=== PATIENT | male | born 1965 | race Caucasian/White ===

== ENCOUNTER 2019-04-03 14:31 | Observation (INO) ==
[2019-04-03] MEDS ORDERED: NITROGLYCERIN 2% OINTMENT 30GM TUBE EXT ONE (15:08)
--- NOTE | 2019-04-03 15:37 | XRay Report ---
XR chest 1V portable CLINICAL HISTORY: chest pain dyspnea COMPARISON STUDY: No previous studies for comparison. FINDINGS: The bones soft tissues and hemidiaphragms are normal. The cardiomediastinal silhouette is n ormal. The lungs are clear. The pulmonary vasculature is normal. IMPRESSION: Negative chest. The above report was generated using voice recognition software. It may contain grammatical, syntax or spelling errors. Electronically signed by: Joel Bonilla M.D. 04/03/2019 3:36 PM
[2019-04-03 16:10] LABS: Basophils # (auto) 0.03 K/uL (0-0.2); Basophils % (auto) 0.4 %; Eosinophils # (auto) 0.32 K/uL (0-0.5); Eosinophils % (auto) 3.8 %; Hematocrit (blood only) 39.9 % (42-52); Hemoglobin 13.3 g/dL (14.0-18.0); Immature Granulocytes # (auto) 0.04 K/uL (0.00-0.02); Immature Granulocytes % (auto) 0.5 %; Lymphocytes # (auto) 1.99 K/uL (1.2-3.4); Lymphocytes % (auto) 23.8 %; Mean Corpuscular Hemoglobin 27.4 pg (25-34); Mean Corpuscular Hgb Conc 33.3 g/dL (32-36); Mean Corpuscular Volume 82.1 fL (80-100); Mean Platelet Volume 9.6 fL (7.4-10.4); Monocytes # (auto) 0.68 K/uL (0.11-0.59); Monocytes % (auto) 8.1 %; Neutrophils % (auto) 63.4 %; Platelet Count 241 K/uL (130-400); RDW Standard Deviation 48.3 fL (36.4-46.3); Red Blood Count 4.86 M/uL (4.7-6.1); White Blood Count 8.36 K/uL (4.8-10.8)
[2019-04-03] MEDS: fentaNYL citrate 100 MCG/2 ML VIAL IV PRN ×3 (16:15→16:56)
[2019-04-03 16:25] LABS: Alanine Aminotransferase 45 U/L (12-78); Albumin Level 3.3 gm/dl (3.4-5.0); Aspartate Aminotransferase 31 U/L (15-37); Blood Urea Nitrogen 17 mg/dl (7-18); Calcium 8.7 mg/dl (8.5-10.1); Carbon Dioxide 28 mmol/L (21-32); Chloride 105 mmol/L (98-107); Est GFR (Non-African American) 77.6; Glucose 131 mg/dl (70-99); Potassium 4.2 mmol/L (3.5-5.1); Sodium 140 mmol/L (136-145)
[2019-04-03 16:35] LABS: Albumin Globulin Ratio 0.9 (0.9-2); Alkaline Phosphatase 83 U/L (45-117); Bilirubin,Total 0.4 mg/dl (0.2-1); Globulin 3.6 gm/dl (2.5-4.0); NT Pro B Type Natriuretic Pept 95 pg/ml (0-900); Total Protein 6.9 gm/dl (6.4-8.2); Troponin I < 0.015 ng/ml (0-0.045)
[2019-04-03] MEDS ORDERED: MoRPHine SULFATE 4 MG/ML 1 ML CARP\\VIAL IV STA (17:16)
[2019-04-03] MEDS ORDERED: ONDANSETRON INJ 2 MG/ML 2 ML VIAL IV STA (17:16)
[2019-04-03] MEDS ORDERED: OPTIRAY 320 125ml IV PRN (17:51)
--- NOTE | 2019-04-03 17:57 | History & Physical Report ---
Date of Service April 03, 2019 Assessment & Plan (1) Pneumonia: (2) Chest pain: Pt is 53 y/o M with PMH NSTEMI, factor V Leiden, lower extremity and upper extremity DVT, recurrent PE's presented with complaint of anterior chest pain, greater over right chest for 2 hours. Denies diaphoresis, N/V, dizziness, SOB. Patient with history of recurrent PEs, previously failed on Coumadin, Xarelto, Eliquis. Recently hospitalized in [place] 3- 4 weeks ago for PE and was started on Pradaxa twice daily. Denies missed doses. In ER vitals stable, 97% on RA. No leukocytosis. EKG sinus rhythm without acute ST elevation CXR: no acute changes CTA CHEST: No evidence for pulmonary embolus. Focal infiltrate right base. CP DDX: PE, Pneumonia, ACS, pleurisy PE Ruled Out Infiltrate consistent with pneumonia -In ER nitropaste, fentanyl with minimal relief in CP -Rocephin, Zithromax -Repeat EKG in am -Will trend troponin -Echo -Lipid panel in am -Continue aspirin, metoprolol -Morphine prn pain -Continue Pradaxa -Consider cardiology consult if troponin trending up -CBC, BMP in am (3) CAD (coronary artery disease): Reports hx NSTEMI. Denies h/o cardiac stent -Reports was taken off statin, but was recently prescribed new statin however has not started taking yet -Continue aspirin, metoprolol -ACS R/O as above (4) Recurrent pulmonary embolism: History of factor V Leiden. History recurrent PE's. Previously failed on Coumadin, Xarelto, Eliquis. Recently hospitalized in [place] 3- 4 weeks ago for PE and was started on Pradaxa twice daily. Denies missed doses. CTA without acute PE today -Continue Pradaxa DVT Prophylaxis -On Pradaxa Follows with PCP (unsure name) in [place] through [facility] for routine care Pt was seen and care coordinated with Dr Mojica. See addendum History of Present Illness Chief Complaint: CP Primary Care Provider: Pt unsure of Dr Name - [facility] Pt is 53 y/o M with PMH NSTEMI, factor V Leiden, lower extremity and upper extremity DVT, recurrent PE's presented to ER with complaint of chest pain for 2 hours. Patient with history of recurrent PEs failed on Coumadin, XarelShivani agee. Reports was recently hospitalized in [place] 3 to 4 weeks ago for PE and was started on Pradaxa twice daily. Reports has neonatal doctor in [place]. Today with onset anterior right and left chest pain. Reports worse to right side of chest and denies extremity radiation to this provider. Some increased CP with inspiration. Denies SOB. Reports this feels more like his prior PE's than [place]. Reports some intermittent bilateral lower extremity pain, denies any noted increased edema or erythema. Denies associated nausea, vomiting, diaphoresis, dizziness or syncope. Tried taking one nitroglycerin without relief however caused headache. 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 Drove 7 to 8 hours today and reports stopping twice to walk around. Reports taking his Pradaxa BID and denies missed doses. Patient denies any history of IVC filter. Reports history of filter to neck. Denies any hx cardiac stent. Denies fever/chills, diaphoresis, N/V/D/C, dizziness, syncope, vision changes, neck pain, orthopnea, palpitations, cough, sore throat, choking, otalgia, rhinorrhea, abdominal pain, paresthesias, weak ness, extremity weakness, rashes, urinary symptoms. In ER Nitropaste placed without any improvement of chest pain. Patient was given fentanyl taking pain from greater than 10 out of 10 on pain scale to 9/10 on pain scale. Allergies Allergy/AdvReac Type Severity Reaction Status Date / Time No Known Allergies Allergy Unverified 04/03/19 15:35 Home Medications Home Medications Medication Instructions Recorded Confirmed Type aspirin 81 mg PO DAILY 04/03/19 04/03/19 History dabigatran etexilate [Pradaxa] 150 mg PO BID 04/03/19 04/03/19 History metoprolol tartrate 25 mg PO BID 04/03/19 04/03/19 History nitroglycerin 0.4 mg SUBLINGUAL UD PRN 04/03/19 04/03/19 History Past Med/Surg History Medical History CAD (coronary artery disease) (Chronic) DVT (deep venous thrombosis) (Chronic) Recurrent pulmonary embolism (Chronic) DVT (deep venous thrombosis) Hypertension Pulmonary embolism Surgical History History of vascular surgery (Chronic) H/O thrombectomy, right arm History of cardiac catheterization (Chronic) History of inguinal hernia repair (Chronic) History of umbilical hernia repair (Chronic) History of cholecystectomy (Chronic) History of appendectomy (Chronic) Hx of tonsillectomy (Chronic) Family History Sister Factor V Leiden Diabetes Father Coronary heart disease Mother Cancer brain cancer Brother Cerebral aneurysm Other Heart disease Social History Feels Safe at Home: Yes Smoking Status: Never smoker Hx Alcohol Use: Yes Alcohol Intake Frequency: Holidays/Special Occasions Hx Substance Use: No Review of Systems Review of Systems: All systems reviewed & are unremarkable except as noted in HPI & below Physical Exam Physical Exam: General: no acute distress, WDWN Head: normocephalic, atraumatic Eyes: PERRL, EOM's intact, conjunctiva non-injected, anicteric ENT: normal inspection external ears, nose, mucous membranes moist Neck: supple, trachea midline Lungs: clear, no respiratory distress, no wheezing/rhonchi/rales CV: RRR, no murmur, no pretibial edema Chest: non-tender to palpation Abd: normal BS, soft, non-tender Ext: no cyanosis, no erythema or warmth, no calf tenderness Neuro: A&O x 3, no focal deficits noted, normal affect Skin: warm, dry Results & Data Vital Signs (Past 12 Hours) Vital Signs Temp Pulse Pulse Resp BP BP Pulse Ox 04/03/19 16:37 67 20 153/83 H 97 04/03/19 16:24 62 18 154/74 H 96 04/03/19 15:21 71 18 149/88 H 98 04/03/19 14:33 36.7 C 84 20 189/96 H 97 Laboratory Results Short CBC 04/03/19 Range/Units 15:55 WBC 8.36 (4.8-10.8) K/uL Hgb 13.3 L (14.0-18.0) g/dL Hct 39.9 L (42-52) % Plt Count 241 (130-400) K/uL BMP 04/03/19 15:55 Sodium 140 Potassium 4.2 Chloride 105 Carbon Dioxide 28 BUN 17 Creatinine 1.09 Glucose 131 H Calcium 8.7 Cardiac Enzymes 04/03/19 Range/Units 15:55 Troponin I < 0.015 (0-0.045) ng/ml Liver Function 04/03/19 Range/Units 15:55 Total Bilirubin 0.4 (0.2-1) mg/dl AST 31 (15-37) U/L ALT 45 (12-78) U/L Alkaline Phosphatase 83 (45-117) U/L Albumin 3.3 L (3.4-5.0) gm/dl Diagnostic Findings CXR: IMPRESSION: Negative chest. CTA CHEST: IMPRESSION: 1. No evidence for pulmonary embolus. 2. Focal infiltrate right base. Code Status & VTE Plan VTE Prophylaxis Plan VTE Prophylaxis will be ordered: Yes Supervising Physician Co-Signing Physician Notes I saw this patient with the physician activities assistant, I participated in the history, physical, review of systems, and physical exam. I reviewed the medications with the patient and the physician activities assistant and helped reconcile the medications. I helped take a detailed family and social history as well. I formulated the assessment and plan personally with the physician activities assistant and went over it with the patient. ROS-No Headache, No Visual Changes, No Nausea, No Vomiting, No Fever, No Chills, No Neck Pain or Stiffness, Pos Chest Pain, No Palpitations, No SOB, No TAMEZ, No Cough, No Sputum, No Wheezing, No Abdominal Pain, No Diarrhea, No Hematemesis, No Hemoptysis, No Unexpected Weight Loss, No Flank pain, No Melena, No Hematochezia, No Frequency, No Urgency, No Burning, No Hematuria, No Rashes, No Diaphoresis. Appetite is Normal Physical Exam Gen-AAO x 3, NAD, Afebrile, obese Head-NCAT, EOMI, PERRLA, Anicteric Sclera, No Posterior Pharyngeal Erythema Neck-Supple, No JVD, No Thyromegaly, No Masses, No LAD, No Bruits Lungs-Clear to Auscultation Bilaterally, No Rales, No Rhonchi, No Wheezing, No Crepitus Chest-No S4, +S1, +S2, No S3, No Murmurs, No Rubs, No Gallops, No Ectopy Abdomen-Soft, Bowel Sounds Present, Non Tender, Non Distended, No Hepatomegaly, No Splenomegaly, No Palpable Masses, No Rebound, No Rigidity, No Guarding Musculoskeletal-Full Range of Motion Bilaterally, No CVAT Extremities-No Cyanosis, No Clubbing, No Edema Nuero-Cranial Nerves II-XII grossly intact, Motor WNL, DTRs WNL, Strength WNL, Non Focal Psych-Normal Mood (1) Chest pain Chest pain type: unspecified Qualified Code(s): R07.9 - Chest pain, unspecified
[2019-04-03] MEDS ORDERED: HEPARIN SODIUM/DEXTROSE 25,000 UNITS/500 ML BAG IV SCH (18:00)
--- NOTE | 2019-04-03 18:14 | CT Scan Report ---
CT angio chest PE protocol CT DOSE: 935.79 mGy.cm HISTORY: Dyspnea PE TECHNIQUE: Multiaxial CT images of the chest were performed following the intravenous administration of contrast to evaluate the pulmonary arteries. Maximal intensity projection images were also obtaine d. A dose lowering technique was utilized adhering to the principles of ALARA. COMPARISON STUDY: None. FINDINGS: There is a normal caliber thoracic aorta with no evidence for dissection. There is no evide nce for pulmonary embolus. No pleural effusions. No pneumothorax. The liver and spleen are unremarkab le. No mediastinal or hilar lymphadenopathy. The central airways are patent. The lungs are demonstrat e. Focal right basilar parenchymal infiltrate. Left base shows slight interstitial prominence. Mid-up per lungs are clear IMPRESSION: 1. No evidence for pulmonary embolus. 2. Focal infiltrate right base. The above report was generated using voice recognition software. It may contain grammatical, syntax or spelling errors. Electronically signed by: Joel Bonilla M.D. 04/03/2019 6:12 PM
[2019-04-03 18:16] LABS: Partial Thromboplastin Ratio 0.9; Partial Thromboplastin Time 23.1 Seconds (21.0-31.0); Prothrombin Time 9.8 Seconds (9.0-12.0)
[2019-04-03] MEDS ORDERED: ONDANSETRON INJ 2 MG/ML 2 ML VIAL IV PRN (18:43)
[2019-04-03] MEDS ORDERED: ACETAMINOPHEN 325 MG TAB PO PRN (18:43)
[2019-04-03] MEDS ORDERED: MoRPHine SULFATE 4 MG/ML 1 ML CARP\\VIAL IV PRN (18:43)
[2019-04-03] MEDS ORDERED: OXYCODONE HCL IR 5 MG TAB (IMMEDIATE RELEASE) PO PRN (18:48)
[2019-04-03] MEDS ORDERED: cefTRIAXone SODIUM 2,000 MG in DEXTROSE 5% 50 ML IV SCH (19:00)
[2019-04-03] MEDS ORDERED: AZITHROMYCIN 500 MG in DEXTROSE 5% 250 ML IV SCH (19:00)
[2019-04-03] MEDS ORDERED: DABIGATRAN ETEXILATE 75 MG CAP PO SCH (21:00)
[2019-04-03] MEDS ORDERED: METOPROLOL TARTRATE 25 MG TAB PO SCH (21:00)
--- NOTE | 2019-04-03 23:48 | Emergency Department Note ---
Entered by Katina Alvarado acting as a scribe for Zuleima Arnold DO History of Present Illness General Chief complaint: Chest Pain Stated complaint: CHEST PAIN,NAUSEA Time Seen by Provider: 04/03/19 14:54 Source: patient History of Present Illness Provider complaint: Chest Pain Onset (ago): hour(s) 2 Location: chest Radiation: back and extremity (Shoulder) Pain Consistency: + constant Maximum Pain Intensity: 10 Quality: + stabbing and + other (Pressure and tightness) Associated symptoms: + nausea/vomiting (Positive nausea. Negative vomiting. ) and + shortness of breath The patient is a 53 year old male who presents to the Emergency Room with complaints of constant pressure and stabbing chest tightness that began about 2 hours ago. The patient states the pain radiates to his back and shoulder. The patient reports experiencing nausea and shortness of breath but denies any vomiting. Patient has been waxing and waning since. No current shortness of breath or nausea. Patient did try a nitro pill when all this started, states does not help the chest pain but it did give him a headache. No other treatment prior to arrival. Patient states he was helping to move someone when this all started. The patient mentioned that he was discharged from the hospital about a month ago for blood clots in both lungs. The patient notes that he has a history of blood clots on multiple different blood thinner medications. Patient does have an IVC filter. There is a family history of factor V Leiden. Patient also concerned about his heart, stating he has had a prior NSTEMI. Patient does not have any indwelling stents. Home Medications Home Medications Medication Instructions Recorded Confirmed Type aspirin 81 mg PO DAILY 04/03/19 04/03/19 History dabigatran etexilate [Pradaxa] 150 mg PO BID 04/03/19 04/03/19 History metoprolol tartrate 25 mg PO BID 04/03/19 04/03/19 History nitroglycerin 0.4 mg SUBLINGUAL UD PRN 04/03/19 04/03/19 History Allergies Allergy/AdvReac Type Severity Reaction Status Date / Time No Known Allergies Allergy Unverified 04/03/19 15:35 Past Med/Surg History Medical History CAD (coronary artery disease) (Chronic) DVT (deep venous thrombosis) (Chronic) Recurrent pulmonary embolism (Chronic) DVT (deep venous thrombosis) Hypertension Pulmonary embolism Surgical History History of vascular surgery (Chronic) H/O thrombectomy, right arm History of cardiac catheterization (Chronic) History of inguinal hernia repair (Chronic) History of umbilical hernia repair (Chronic) History of cholecystectomy (Chronic) History of appendectomy (Chronic) Hx of tonsillectomy (Chronic) Family History Sister Factor V Leiden Diabetes Father Coronary heart disease Mother Cancer brain cancer Brother Cerebral aneurysm Other Heart disease Social History Preferred Language: Palauan Communication Ability: Effective Documentation Specialist Required: No Beliefs That Will Affect Care: None Current Living Situation: Alone Other Information That Helps Us Care for You: No Feels Safe at Home: Yes Safety Concerns: Feels Safe At This Time Smoking Status: Never smoker Hx Alcohol Use: Yes Alcohol Intake Frequency: Holidays/Special Occasions Hx Substance Use: No Review of Systems See HPI for pertinent positives & negatives. and A total of 10 systems reviewed and were otherwise negative Physical Exam Vital Signs Vital Signs - 24 hr 04/03/19 14:33 04/03/19 15:21 04/03/19 16:24 Temperature 36.7 C Temperature Source Oral Sepsis Recent Fever Within 48 Hours No Sepsis New/Unexplained Change in Mental Status No Sepsis Action Taken by Nursing No Action Required Pulse Rate 84 Pulse Rate [Right Finger] 71 62 Pulse Rhythm [Right Finger] Regular Respiratory Rate 20 18 18 Respiratory Effort / Characteristics Non-Labored Non-Labored Spontaneous Respiratory Depth Normal Normal Respiratory Pattern Blood Pressure 189/96 H Blood Pressure [Right Arm] 149/88 H 154/74 H Blood Pressure Mean 127 Blood Pressure Mean [Right Arm] 108 100 Blood Pressure Position [Right Arm] Lying Lying Pulse Oximetry 97 98 96 Oxygen Delivery Method Room Air Room Air 04/03/19 16:37 Temperature Temperature Source Sepsis Recent Fever Within 48 Hours Sepsis New/Unexplained Change in Mental Status Sepsis Action Taken by Nursing Pulse Rate Pulse Rate [Right Finger] 67 Pulse Rhythm [Right Finger] Regular Respiratory Rate 20 Respiratory Effort / Characteristics Non-Labored Spontaneous Respiratory Depth Normal Respiratory Pattern Regular Blood Pressure Blood Pressure [Right Arm] 153/83 H Blood Pressure Mean Blood Pressure Mean [Right Arm] 106 Blood Pressure Position [Right Arm] Lying Pulse Oximetry 97 Oxygen Delivery Method Room Air GENERAL: alert, uncomfortable-appearing, well nourished, no distress, non-toxic EYE EXAM: normal conjunctiva, PERRL and EOM's grossly intact OROPHARYNX: no exudate, no erythema, lips, buccal mucosa, and tongue normal and mucous membranes are moist NECK: supple, no nuchal rigidity, no adenopathy, non-tender LUNGS: Clear to auscultation. Normal chest wall mechanics. No wheezes, rhonchi, or rales. HEART: no murmurs, S1 normal and S2 normal. No reproducible chest wall tenderness. ABDOMEN: abdomen soft, non-tender, normo-active bowel sounds, no masses, no rebound or guarding. BACK: Back is symmetrical on inspection and there is no deformity, no midline tenderness, no CVA tenderness. SKIN: no rashes and no bruising UPPER EXTREMITIES: upper extremities are grossly normal. FROM, nml pulses b/l. LOWER EXTREMITIES: No pitting edema. FROM, nml pulses b/l. NEURO EXAM: Normal sensorium, cranial nerves II-XII grossly intact, normal speech, no gross weakness of arms, no gross weakness of legs. Course 1458: Past medical records reviewed. The patient was evaluated in room B11B. A complete history and physical exam was performed. 1644: I reevaluated the patient and discussed test results. The patient states that he is still in pain. Additional pain medication added. 1651: I spoke with Deloris Retana about the patient's case and she said Dr. Mojica will accept the patient for further evaluation. They will evaluate the patient prior to deciding if they want additional anticoagulation started or CT imaging versus echo performed. Administered Medications Acetaminophen (Tylenol) 650 mg PO Q4H PRN PRN Reason: Pain or Fever Stop: 05/03/19 18:42 Last Admin: 04/03/19 19:51 Dose: 650 mg Documented by: [id number] Dabigatran (Pradaxa) 150 mg PO BID SKY Stop: 05/03/19 20:59 Last Admin: 04/03/19 19:53 Dose: 150 mg Documented by: [id number] Ceftriaxone Sodium 2,000 mg/ (Dextrose) 70 mls @ 100 mls/hr IV Q24H SKY; Protocol Stop: 04/10/19 18:59 Last Infusion: 04/03/19 20:38 Dose: 0 mls/hr Documented by: [id number] Admin: 04/03/19 19:56 Dose: 100 mls/hr Documented by: [id number] Azithromycin 500 mg/ Dextrose 255 mls @ 125 mls/hr IV Q24H SKY; Protocol Stop: 04/10/19 18:59 Last Infusion: 04/03/19 23:05 Dose: 0 mls/hr Documented by: [id number] Admin: 04/03/19 21:02 Dose: 125 mls/hr Documented by: [id number] Metoprolol Tartrate (Lopressor) 25 mg PO BID SKY Stop: 05/03/19 20:59 Last Admin: 04/03/19 19:53 Dose: 25 mg Documented by: [id number] Morphine Sulfate (Morphine Sulfate) 3 mg IV Q3H PRN PRN Reason: Severe Pain Stop: 04/17/19 18:42 Last Admin: 04/03/19 21:22 Dose: 3 mg Documented by: [id number] Oxycodone HCl (Roxicodone Immediate Rel) 5 mg PO Q6H PRN PRN Reason: Moderate Pain Stop: 04/17/19 18:47 Last Admin: 04/03/19 19:51 Dose: 5 mg Documented by: [id number] Discontinued Medications Fentanyl Citrate (Fentanyl Citrate) 100 mcg IV Q15M PRN PRN Reason: Pain Stop: 04/17/19 15:07 Last Admin: 04/03/19 16:56 Dose: 100 mcg Documented by: [id number] Admin: 04/03/19 16:35 Dose: 100 mcg Documented by: [id number] Admin: 04/03/19 16:15 Dose: 100 mcg Documented by: [id number] Heparin Sodium/Dextrose () 1 ea IV NOW STA; Protocol Stop: 04/03/19 17:51 Last Admin: 04/03/19 18:44 Dose: Not Given Documented by: [id number] Heparin Sodium/Dextrose (Heparin Sodium/Dextrose) 25,000 units in 500 mls @ 0.02 mls/hr IV .Q24H SKY; Protocol Stop: 05/03/19 17:59 Last Admin: 04/03/19 18:44 Dose: Not Given Documented by: [id number] Ioversol (Optiray 320 125ml) 115 ml IV ONCE PRN PRN Reason: Interaction Checking Stop: 04/07/19 17:50 Last Admin: 04/03/19 17:51 Dose: 115 ml Documented by: [id number] Morphine Sulfate (Morphine Sulfate) 4 mg IV NOW STA Stop: 04/03/19 17:17 Last Admin: 04/03/19 17:31 Dose: 4 mg Documented by: [id number] Nitroglycerin (Nitro-Bid 2%) 1 inch EXT NOW ONE Stop: 04/03/19 15:09 Last Admin: 04/03/19 15:20 Dose: 1 inch Documented by: [id number] Ondansetron HCl (Zofran) 4 mg IV NOW STA Stop: 04/03/19 17:17 Last Admin: 04/03/19 17:31 Dose: 4 mg Documented by: [id number] Medical Decision Making Differential Diagnosis Differential diagnosis: Etiologies such as shingles, musculoskeletal pain, pericarditis, myocarditis, cardiac ischemia, pericardial tamponade, pneumonia, pneumothorax, pleural effusion, hemothorax, pleurisy, aortic pathology, pulmonary embolism, intra- abdominal process, as well as others were considered. Medical Records Attestation: I reviewed the patient's medical records. Home Medications Current Medication List: was personally reviewed by me Laboratory Data Attestation: I reviewed the patient's lab results. Result diagrams: 04/03/19 15:55 04/03/19 15:55 Lab Results 04/03/19 04/03/19 04/03/19 Range/Units 15:00 15:55 15:55 WBC 8.36 (4.8-10.8) K/uL RBC 4.86 (4.7-6.1) M/uL Hgb 13.3 L (14.0-18.0) g/dL Hct 39.9 L (42-52) % MCV 82.1 (80-100) fL MCH 27.4 (25-34) pg MCHC 33.3 (32-36) g/dL RDW Std Deviation 48.3 H (36.4-46.3) fL RDW Coeff of Madhavi 16.0 H (11.5-14.5) % Plt Count 241 (130-400) K/uL MPV 9.6 (7.4-10.4) fL Immature Gran % (Auto) 0.5 % Neut % (Auto) 63.4 % Lymph % (Auto) 23.8 % Perkins % (Auto) 8.1 % Eos % (Auto) 3.8 % Baso % (Auto) 0.4 % Immature Gran # (Auto) 0.04 H (0.00-0.02) K/uL Neut # (Auto) 5.30 (1.4-6.5) K/uL Lymph # (Auto) 1.99 (1.2-3.4) K/uL Perkins # (Auto) 0.68 H (0.11-0.59) K/uL Eos # (Auto) 0.32 (0-0.5) K/uL Baso # (Auto) 0.03 (0-0.2) K/uL PT 9.8 (9.0-12.0) Seconds INR 1.0 (0.9-1.1) APTT 23.1 (21.0-31.0) Seconds PTT Ratio 0.9 Sodium 140 (136-145) mmol/L Potassium 4.2 (3.5-5.1) mmol/L Chloride 105 (98-107) mmol/L Carbon Dioxide 28 (21-32) mmol/L Anion Gap 7.0 (3-11) BUN 17 (7-18) mg/dl Creatinine 1.09 (0.6-1.4) mg/dl Est Cr Clr Drug Dosing 125.0 ml/min Est GFR ( Amer) 90.0 Est GFR (Non-Af Amer) 77.6 BUN/Creatinine Ratio 16.0 (10-20) Glucose 131 H (70-99) mg/dl Calcium 8.7 (8.5-10.1) mg/dl Magnesium 2.0 (1.8-2.4) mg/dl Total Bilirubin 0.4 (0.2-1) mg/dl AST 31 (15-37) U/L ALT 45 (12-78) U/L Alkaline Phosphatase 83 (45-117) U/L Troponin I < 0.015 (0-0.045) ng/ml NT-Pro-B Natriuret Pep 95 (0-900) pg/ml Total Protein 6.9 (6.4-8.2) gm/dl Albumin 3.3 L (3.4-5.0) gm/dl Globulin 3.6 (2.5-4.0) gm/dl Albumin/Globulin Ratio 0.9 (0.9-2) TSH 2.150 (0.300-4.500) uIu/ml Imaging Data Radiologist's Impression: Radiology results as stated below per my review and the radiologist's interpretation: XR KUB/Abdomen 1 view CLINICAL HISTORY: abd pain, constipation COMPARISON STUDY: No previous studies for comparison. FINDINGS: The soft tissues, psoas shadows, renal outlines and intestinal gas pattern appear normal. There is no evidence for bowel obstruction. No abnormal abdominal calcifications are seen. Mild rectal fecal impaction IMPRESSION: Mild rectal fecal impaction. Otherwise negative study The above report was generated using voice recognition software. It may contain grammatical, syntax or spelling errors. Electronically signed by: Joel Bonilla M.D. 04/03/2019 3:31 PM ECG Data Attestation: I personally reviewed and interpreted this ECG as follows: Indication: chest pain Rate (beats per minute): 78 Rhythm: normal sinus Findings: + other (Normal intervals and axis); no PAC, no PVC and no acute ischemic change Blood Pressure Blood Pressure Findings: Elevated blood pressure Blood Pressure Disposition: further management by hospitalist ANA Narrative Patient with known history of coronary artery disease and prior NSTEMI pre senting today with sudden onset of chest pain. Patient is already anticoagulated due to known bilateral PEs. Patient had no relief of his symptoms following nitro. Labs drawn and sent, and initial blood results are reassuring. Chest x-ray unremarkable. Nitroglycerin paste added in addition to IV narcotics to help with pain control. Patient's vital signs were stable throughout. Patient was made aware of all results and was in agreement with plan for additional inpatient evaluation and monitoring. Discussed with patient possible cardiac etiology, versus also the additional concern of his known PEs and prior failure of anticoagulation. Upon my discussion with the hospitalist team, I offered to CT the patient versus to initiate heparin and order a stat echo. They will see and evaluate the patient prior to making this decision. Patient had a negative troponin and no acute EKG changes at this time. I discussed with the patient possible additional testing to be performed and he ve rbalized understanding. Patient remained hemodynamically stable in the emergency room. No other symptoms to suggest evolving infectious etiology. I do not suspect acute GI pathology at this time. I do not suspect dissection, tamponade, effusion, pericarditis/myocarditis. Impression & Plan Chest pain, Recurrent pulmonary embolism Discharge Plan Visit Data *Final* Discharge Date/Time: 04/03/19 18:27 Chief Complaint: Chest Pain Stated Complaint: CHEST PAIN,NAUSEA ED Provider: Zuleima Arnold Discharge Problem: Chest pain, Recurrent pulmonary embolism Patient Disposition: Admitted As Inpatient Discharge Instructions Interventions: ED Discharge Assessment Last Done: 04/03/19 18:27 The scribe's documentation has been prepared under my direction and personally reviewed by me in its entirety. I confirm that the note above accurately reflects all work, treatment, procedures, and medical decision making performed by me.
[2019-04-04 03:09] VITALS: TEMP 98.2
[2019-04-04 03:49] LABS: BUN Creatinine Ratio 15.9 (10-20); Blood Urea Nitrogen 18 mg/dl (7-18); Calcium 8.7 mg/dl (8.5-10.1); Carbon Dioxide 25 mmol/L (21-32); Chloride 107 mmol/L (98-107); Cholesterol 148 mg/dl (0-200); Creatinine Clr Calc Pharmacy 122.6 ml/min; Est GFR (Non-African American) 75.9; Glucose 90 mg/dl (70-99); Potassium 4.4 mmol/L (3.5-5.1); Sodium 139 mmol/L (136-145); Triglycerides 131 mg/dl (0-150); VLDL Cholesterol 26 mg/dl
[2019-04-04 04:04] LABS: Chol HDL Ratio 4; HDL Cholesterol 34 mg/dl; LDL Cholesterol Calculated 88 mg/dl; Troponin I < 0.015 ng/ml (0-0.045)
--- NOTE | 2019-04-04 06:08 | Hospitalist Progress Note ---
Date of Service April 04, 2019 Subjective Made aware by RN of patient request to leave hospital to deliver a scheduled shipment. 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 Patient unwilling to complete cardiac work-up ordered by admitting providers. Patient not willing to wait for morning provider. Patient intent on leaving hospital AGAINST MEDICAL ADVICE despite explanations provided and citation of risks/consequences arising from decision to leave AMA which includes as an extreme circumstance. Patient signed AMA papers. Results & Data Vital Signs (Past 12 Hours) Vital Signs Temp Pulse Resp BP Pulse Ox 04/04/19 03:06 36.8 C 61 16 122/80 93 04/03/19 23:33 36.9 C 60 16 124/87 95 04/03/19 18:43 36.6 C 64 22 137/83 96 04/03/19 18:11 20 153/83 H 98
[2019-04-04 06:17] VITALS: BP 122/87; PULSE 60; O2SAT 96
--- NOTE | 2019-04-04 07:43 | Discharge Summary ---
Date of Service April 04, 2019 Admission HPI Per Admitting Provider Pt is 53 y/o M with PMH NSTEMI, factor V Leiden, lower extremity and upper extremity DVT, recurrent PE's presented to ER with complaint of chest pain for 2 hours. Patient with history of recurrent PEs failed on Coumadin, Xarelto, Eliquis. Reports was recently hospitalized in [place] 3 to 4 weeks ago for PE and was started on Pradaxa twice daily. 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 Today with onset anterior right and left chest pain. Reports worse to right side of chest and denies extremity radiation to this provider. Some increased CP with inspiration. Denies SOB. Reports this feels more like his prior PE's than [place]. Reports some intermittent bilateral lower extremity pain, denies any noted increased edema or erythema. Denies associated nausea, vomiting, diaphoresis, dizziness or syncope. Tried taking one nitroglycerin without relief however caused headache. 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 Drove 7 to 8 hours today and reports stopping twice to walk around. Reports taking his Pradaxa BID and denies missed doses. Patient denies any history of IVC filter. Reports history of filter to neck. Denies any hx cardiac stent. Denies fever/chills, diaphoresis, N/V/D/C, dizziness, syncope, vision changes, neck pain, orthopnea, palpitations, cough, sore throat, choking, otalgia, rhinorrhea, abdominal pain, paresthesias, weakness, extremity weakness, rashes, urinary symptoms. In ER Nitropaste placed without any improvement of chest pain. Patient was given fentanyl taking pain from greater than 10 out of 10 on pain scale to 9/10 on pain scale. Discharge Data Consultations 04/03/19 16:55 ED Decision to Admit Stat Hospital Course (1) Chest pain: Patient received Ceftriaxone and Azithromycin for possible pneumonia on CT chest. Made aware by RN of patient request to leave hospital to deliver a scheduled shipment. 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 Patient unwilling to complete cardiac work-up ordered by admitting providers. Patient not willing to wait for morning provider. Patient intent on leaving hospital AGAINST MEDICAL ADVICE despite explanations provided and citation of risks/consequences arising from decision to leave AMA which includes as an extreme circumstance. Patient signed AMA papers.
[2019-04-04] MEDS ORDERED: ASPIRIN 81 MG ECTAB PO SCH (09:00)
== END 2019-04-04 06:19 | disposition left against medical advice (07) ==
LOC: ED 14:31 → 2E 17:49 → INTOOBSV 17:49 → 2E 18:27
DX: Z79.899 Other long term (current) drug therapy; I25.2 Old myocardial infarction; Z91.19 Patient's noncompliance with other medical treatment and regimen; I10 Essential (primary) hypertension; Z86.718 Personal history of other venous thrombosis and embolism; Z86.711 Personal history of pulmonary embolism; D68.51 Activated protein C resistance; Z79.82 Long term (current) use of aspirin; R07.9 Chest pain, unspecified; R11.0 Nausea; I25.10 Atherosclerotic heart disease of native coronary artery without angina pectoris; Z82.49 Family history of ischemic heart disease and other diseases of the circulatory system